=== PATIENT | female | born 1955 | race Asian ===

== ENCOUNTER 2016-07-09 21:19 | Inpatient (IN) | payer BC, MEDICAID ==
[~2016-07-09] VITALS: Ht 162.6 cm; Wt 73.5 kg
[2016-07-09 21:20] VITALS: BP 151/74; PULSE 58; RESP 16; TEMP 97.6; O2SAT 98
--- NOTE | 2016-07-09 21:30 | NUR ---
Placed in room 2 . Placed on cardiac monitor technician, blood pressure machine and pulse oximeter. To gown for exam. Side rails up. Report given to Klely HEATH.
--- NOTE | 2016-07-09 21:32 | NUR ---
Pt presents with c/o acute dizziness, started at home. Pt denies falling or injury. A&Ox4, denies SOB or chestpain,denies N/V/D, skin intact. Will continue to monitor
--- NOTE | 2016-07-09 21:35 | NUR ---
at bedside examining pt
[2016-07-09 22:11] LABS: BASOPHILS % (AUTO) 0.6 % (0.0-2.0); CALCIUM 9.5 mg/dL (8.4-11.0); CREATININE 0.78 mg/dL (0.55-1.30); EOSINOPHILS # (AUTO) 0.2 K/uL (0.0-0.4); HEMATOCRIT 43.8 % (36-48); HEMOGLOBIN 14.4 g/dL (12.0-16.0); LYMPHOCYTES # (AUTO) 3.2 K/uL (1.0-5.5); LYMPHOCYTES % (AUTO) 38.8 % (20.5-51.5); MEAN CORPUSCULAR HEMOGLOBIN 29 pg (27-31); MEAN CORPUSCULAR HGB CONC 33 % (32-36); MEAN CORPUSCULAR VOLUME 89 fL (79.0-98.0); MONOCYTES # (AUTO) 0.6 K/uL (0.0-1.0); MONOCYTES % (AUTO) 6.9 % (1.7-9.3); NEUTROPHILS # (AUTO) 4.2 K/uL (1.8-7.7); NEUTROPHILS % (AUTO) 51.7 % (40.0-70.0); PLATELET COUNT (AUTO) 195 K/uL (130-430); POTASSIUM 3.5 mmol/L (3.5-5.1); RED BLOOD CELL COUNT(AUTO) 4.92 MIL/uL (4.2-6.2); RED CELL DISTRIBUTION WIDTH 12.9 % (9.0-15.0); WHITE BLOOD COUNT (AUTO) 8.2 K/uL (4.8-10.8)
[2016-07-09 22:16] LABS: ALBUMIN 4.3 g/dL (3.4-4.8); TOTAL BILIRUBIN 0.5 mg/dL (0.0-1.0); TOTAL PROTEIN, SERUM 8.2 g/dL (6.4-8.3)
[2016-07-09 22:19] LABS: INR 0.9 (0.8-1.2)
[2016-07-09] MEDS ORDERED: NACL 0.9% 1,000 ML IV ONE (22:30)
--- NOTE | 2016-07-09 22:35 | NUR ---
Pt assessed, denies pain or distress. WIll continue to monitor
[2016-07-09 23:37] LABS: BILIRUBIN,URINE NEGATIVE (NEGATIVE); CLARITY/URINE SL HAZY (CLEAR); COLOR,URINE YELLOW (YELLOW); GLUCOSE,URINE NEGATIVE (NEGATIVE); KETONES,URINE NEGATIVE (NEGATIVE); LEUKOCYTE ESTERASE ,URINE 3+ (NEGATIVE); NITRITE, URINE NEGATIVE (NEGATIVE); PROTEIN URINE NEGATIVE (NEGATIVE); UROBILINOGEN,URINE 0.2 (0.2-1.0)
[2016-07-09 23:38] LABS: BLOOD, URINE TRACE (NEGATIVE)
--- NOTE | 2016-07-10 00:05 | NUR ---
Pt in bed, daughter at bedside
[2016-07-10 00:16] LABS: RBC,URINE 0-3 /HPF (0-3)
[2016-07-10 00:17] LABS: BACTERIA,URINE MODERATE /HPF (None Seen); WBC,URINE 20-50 /HPF (0-3)
[2016-07-10] MEDS ORDERED: LOSA25TA3 PO (00:21)
[2016-07-10] MEDS ORDERED: SIMV20TA2 PO (00:21)
[2016-07-10] MEDS ORDERED: cefTRIAXone 1 GM IVPB PREMIX 50 ML IV ONE (00:30)
--- NOTE | 2016-07-10 00:58 | NUR ---
Patient will be admitted to care of . Admitted to telemetry unit. Will go to room 114A. Belongings list completed. Summary report printed. Report given to Richie HEATHplate washer to 114A via ACLS protocol. 2 Licensed nurse present. IV present no signs or symptoms of infiltration.
--- NOTE | 2016-07-10 01:00 | NUR ---
ADMISSION ASSESSMENT: RECEIVED PT FROM ER VIA [facility], PT STEADY TO AMBULATE TO [facility] TO BED, ADMITTING DIAGNOSIS UTI AND BRADYCARDIA, , DENIES ANY DIZZINESS, INFANT TODDLER LEAD TEACHER PLACED, WILL CONTINUE TO MONITOR.
--- NOTE | 2016-07-10 01:05 | NUR ---
initial nursing notes: Patient is awake. Patient ambulates to the bathroom with assist. Patient has an IV access on the left AC. Patient denies of having pain.
[2016-07-10 01:13] VITALS: BP 152/83; PULSE 60; RESP 18; TEMP 97.9
[2016-07-10] MEDS: NACL 0.9% 1,000 ML IV SCH ×3 (01:28→21:00)
--- NOTE | 2016-07-10 03:05 | NUR ---
nursing rounds: Patient is asleep. Patient has no shortness of breath.
[2016-07-10 04:00] VITALS: BP 130/72; PULSE 56; RESP 17; TEMP 97.7; O2SAT 100
--- NOTE | 2016-07-10 05:05 | NUR ---
nursing rounds: Patient calmly resting in bed. Patient has no respiratory distress.
[2016-07-10] MEDS: INSULIN REGULAR, HUMAN 100 UNITS/ML, 10 ML VIAL (novoLIN R) SUBCUT PRN ×2 (06:24→17:43)
[2016-07-10 06:48] LABS: BASOPHILS % (AUTO) 0.5 % (0.0-2.0); EOSINOPHILS # (AUTO) 0.1 K/uL (0.0-0.4); EOSINOPHILS % (AUTO) 1.9 % (0.0-4.0); HEMATOCRIT 38.7 % (36-48); HEMOGLOBIN 13.5 g/dL (12.0-16.0); LYMPHOCYTES # (AUTO) 2.3 K/uL (1.0-5.5); LYMPHOCYTES % (AUTO) 33.7 % (20.5-51.5); MEAN CORPUSCULAR HEMOGLOBIN 31 pg (27-31); MEAN CORPUSCULAR HGB CONC 35 % (32-36); MEAN CORPUSCULAR VOLUME 89 fL (79.0-98.0); MONOCYTES # (AUTO) 0.5 K/uL (0.0-1.0); MONOCYTES % (AUTO) 7.3 % (1.7-9.3); NEUTROPHILS # (AUTO) 3.8 K/uL (1.8-7.7); NEUTROPHILS % (AUTO) 56.6 % (40.0-70.0); PLATELET COUNT (AUTO) 163 K/uL (130-430); RED BLOOD CELL COUNT(AUTO) 4.36 MIL/uL (4.2-6.2); RED CELL DISTRIBUTION WIDTH 12.8 % (9.0-15.0); WHITE BLOOD COUNT (AUTO) 6.7 K/uL (4.8-10.8)
--- NOTE | 2016-07-10 07:28 | NUR ---
closing nursing notes: Patient is awake, alert and oriented X 4. Patient is in no acute respiratory distress. 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 Provided nursing report to incoming morning shift nurse, KUMAR Gomes, at patient's bedside.
[2016-07-10 07:59] VITALS: BP 143/75; PULSE 57; RESP 20; TEMP 97.6; O2SAT 98
--- NOTE | 2016-07-10 07:59 | NUR ---
AM ROUNDS: No s/s of distress noted. Patient educated on safety precautions. Patient verbalized understanding. Will continue to monitor.
[2016-07-10] MEDS: LOSARTAN POTASSIUM 25 MG TABLET PO SCH (08:02)
[2016-07-10] MEDS ORDERED: ONDANSETRON HCL 4 MG/2 ML VIAL IVP PRN (09:15)
[2016-07-10] MEDS ORDERED: ZOLPIDEM TARTRATE 5 MG TABLET PO PRN (09:15)
[2016-07-10] MEDS ORDERED: ACETAMINOPHEN 325 MG TABLET PO PRN (09:15)
[2016-07-10] MEDS ORDERED: POTASSIUM CHLORIDE 10 MEQ TAB.PRT.SR PO PRN (09:15)
[2016-07-10] MEDS ORDERED: MORPHINE 2 MG/ML INJ. SYRINGE IVP PRN (09:15)
[2016-07-10] MEDS ORDERED: DOCUSATE SODIUM 100 MG CAPSULE PO PRN (09:15)
[2016-07-10] MEDS ORDERED: MAGNESIUM SULFATE 50 ML IV PRN (09:15)
[2016-07-10] MEDS ORDERED: LORazepam 2 MG/ML VIAL IVP PRN (09:15)
--- NOTE | 2016-07-10 09:48 | NUR ---
Cardiology consult Order received for a consult with Dr Gonzalez for symptomatic bradycardia. Spoke with Shasta at the exchange. Will follow up as needed.
--- NOTE | 2016-07-10 10:08 | NUR ---
PATIENT RESTING: Patient resting quietly. No acute distress noted. Vital signs within normal range.
--- NOTE | 2016-07-10 10:28 | NUR ---
Neurology consult Order received for a consult with Dr Matt. Spoke with Shasta at the exchange. Will follow up as needed.
[2016-07-10 12:20] VITALS: BP 154/73; PULSE 64; RESP 16; TEMP 96.9; O2SAT 94
[2016-07-10] MEDS: CARBAMIDE PEROXIDE 6.5% EAR DROPS (DEBROX) OT SCH ×3 (12:27→21:05)
--- NOTE | 2016-07-10 12:31 | NUR ---
PATIENT RESTING: Patient resting quietly. No acute distress noted. Vital signs within normal range.
--- NOTE | 2016-07-10 14:05 | NUR ---
PATIENT RESTING: Patient resting quietly. No acute distress noted. Vital signs within normal range.
--- NOTE | 2016-07-10 16:10 | NUR ---
PATIENT RESTING: Patient resting quietly. No acute distress noted. Vital signs within normal range.
[2016-07-10 16:11] VITALS: BP 144/75; PULSE 65; RESP 17; TEMP 98.9; O2SAT 99
--- NOTE | 2016-07-10 18:03 | NUR ---
CLOSING NOTE: All need met. Patient to be NPO after midnight for stress test at 1000 tomorrow. Will endorse to NOC shift nurse.
[2016-07-10 19:13] VITALS: BP 119/68; PULSE 58; RESP 15; TEMP 97.8; O2SAT 97
--- NOTE | 2016-07-10 19:40 | NUR ---
initial nursing notes: Patient is awake. Patient has IV fluid infusing on the left AC IV access. Patient denies of having pain.
[2016-07-10] MEDS: SIMVASTATIN 20 MG TABLET PO SCH (20:58)
[2016-07-10] MEDS: HEPARIN SODIUM,PORCINE 5000 UNITS/ML VIAL SUBCUT SCH (21:11)
--- NOTE | 2016-07-10 21:40 | NUR ---
nursing rounds: Patient calmly resting in bed. Patient watching television.
--- NOTE | 2016-07-10 23:40 | NUR ---
nursing rounds: Patient asleep in bed. Patient is aware that she will be NPO after midnight for a procedure tomorrow.
[2016-07-11 00:30] VITALS: BP 124/70; PULSE 56; RESP 18; TEMP 96.9; O2SAT 98
[2016-07-11] MEDS: cefTRIAXone 1 GM in D5W 50 ML IV SCH (00:50)
--- NOTE | 2016-07-11 01:40 | NUR ---
nursing rounds: Patient is sleeping. Patient has no shortness of breath.
--- NOTE | 2016-07-11 03:40 | NUR ---
nursing rounds: Patient calmly resting in bed. Call light within patient's reach.
[2016-07-11 04:00] VITALS: BP 109/67; PULSE 55; RESP 17; TEMP 97.2; O2SAT 100
--- NOTE | 2016-07-11 05:40 | NUR ---
nursing rounds: Patient asleep in bed. Kept bed alarm on for patient's safety.
[2016-07-11] MEDS: NACL 0.9% 1,000 ML IV SCH ×2 (05:54→16:45)
[2016-07-11 06:40] LABS: BASOPHILS % (AUTO) 0.5 % (0.0-2.0); EOSINOPHILS # (AUTO) 0.1 K/uL (0.0-0.4); EOSINOPHILS % (AUTO) 2.2 % (0.0-4.0); HEMATOCRIT 39.7 % (36-48); HEMOGLOBIN 13.5 g/dL (12.0-16.0); LYMPHOCYTES # (AUTO) 2.5 K/uL (1.0-5.5); LYMPHOCYTES % (AUTO) 42.2 % (20.5-51.5); MEAN CORPUSCULAR HEMOGLOBIN 30 pg (27-31); MEAN CORPUSCULAR HGB CONC 34 % (32-36); MEAN CORPUSCULAR VOLUME 89 fL (79.0-98.0); MONOCYTES # (AUTO) 0.4 K/uL (0.0-1.0); MONOCYTES % (AUTO) 6.8 % (1.7-9.3); NEUTROPHILS % (AUTO) 48.3 % (40.0-70.0); PLATELET COUNT (AUTO) 168 K/uL (130-430); RED BLOOD CELL COUNT(AUTO) 4.48 MIL/uL (4.2-6.2)
[2016-07-11 07:11] LABS: CALCIUM 8.6 mg/dL (8.4-11.0); CREATININE 0.76 mg/dL (0.55-1.30); POTASSIUM 3.8 mmol/L (3.5-5.1)
--- NOTE | 2016-07-11 07:29 | NUR ---
closing nursing notes: Patient is awake, alert and oriented X 4. Patient is in no acute respiratory distress. 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 Provided nursing report to incoming morning shift nurse, KUMAR Dewitt, at patient's bedside.
[2016-07-11 08:00] VITALS: BP 133/76; PULSE 53; RESP 18; TEMP 97.2; O2SAT 96
--- NOTE | 2016-07-11 08:00 | NUR ---
OPENING NOTE PATIENT IS AWAKE, ALERT AND ORIENTED. DENIES ANY PAIN AT THIS TIME. STATES SHE STILL HAS SOME BURNING WITH URINATION. PATIENT HAS VERBALIZED THAT SHE IS STRESSED ABOUT DEADLINES AT WORK AND DOES OT WANT TO BE HOSPITALIZED ANY LONGER. REPORTS LEFT EAR PAIN. UNKNOWN CAUSE, STATES SHE WOKE UP WITH PAIN.
[2016-07-11] MEDS: LOSARTAN POTASSIUM 25 MG TABLET PO SCH (08:56)
[2016-07-11] MEDS: CARBAMIDE PEROXIDE 6.5% EAR DROPS (DEBROX) OT SCH ×4 (08:57→21:06)
[2016-07-11] MEDS: HEPARIN SODIUM,PORCINE 5000 UNITS/ML VIAL SUBCUT SCH ×2 (09:00→21:09)
--- NOTE | 2016-07-11 09:52 | NUR ---
PATIENT TAKEN TO CARDIO STRESS TEST VIA WHEELCHAIR.
--- NOTE | 2016-07-11 11:07 | NUR ---
PATIENT RETURNED FROM CARDIAC STRESS TEST VIA WHEELCHAIR. REPORTS BEING VERY HUNGRY AND THIRSTY. DENIES ANY CHEST PAIN OR SOB. ATTACHED TO MONITOR, IV. DAUGHTER AT BEDSIDE WITH PATIENT.
[2016-07-11 12:00] VITALS: BP 123/73; PULSE 60; RESP 21; TEMP 97; O2SAT 97
--- NOTE | 2016-07-11 13:56 | NUR ---
PT FAMILY AT BEDSIDE. BG 36 PT LUNCH, GIVEN LUNCH TRAY AND SNACK. PER DR CATALAN PLANS TO DC PT HOME TOMORROW
--- NOTE | 2016-07-11 15:35 | NUR ---
DR CATALAN PAGED REGARDING POSITIVE BLOOD CULTURE RESULTS
--- NOTE | 2016-07-11 15:59 | NUR ---
Consult was called Rg:sepsis spoke with Selena from Dr Stratton exchange Dr Mas is tongue stitcher for Dr Stratton
[2016-07-11 16:00] VITALS: BP 119/62; PULSE 59; RESP 21; TEMP 97.1; O2SAT 97
--- NOTE | 2016-07-11 18:00 | NUR ---
PATIENT'S FRIEND AT BEDSIDE. PT AMBULATIN GORDON TEE WITH HER FRIEND AND IV POLE
--- NOTE | 2016-07-11 18:30 | NUR ---
PATIENT IV INFILTRATED. IV STOPPED, REMOVED AND PRESSURE DRESSING APPLIED. FAMILY REMAINS AT BEDSIDE
--- NOTE | 2016-07-11 19:15 | NUR ---
PATIENT IN STABLE CONDITION. NO SIGNS OF DISTRESS. REPORT GIVEN TO NIGHTSHIFT RN
--- NOTE | 2016-07-11 19:50 | NUR ---
ROUNDS PATIENT IN BED, WATCHING TV, VITALS STABLE, DENIES ANY PAIN AND DISCOMFORT AT THIS TIME. ASSESSMENT DONE AND DOCUMENTED. SEE FLOWSHEET. NEEDS ATTENDED TO. SAFETY AND FALL PRECAUTION MEASURES IN PLACED. BED IN LOW AND LOCKED POSITION. CALL LIGHT PLACED WITHIN REACH.
--- NOTE | 2016-07-11 21:00 | NUR ---
MEDICATION DUE MEDICATIONS GIVEN ORDERED, TOLERATED WELL. WILL CONTINUE TO MONITOR.
[2016-07-11] MEDS: SIMVASTATIN 20 MG TABLET PO SCH (21:06)
[2016-07-11] MEDS: INSULIN REGULAR, HUMAN 100 UNITS/ML, 10 ML VIAL (novoLIN R) SUBCUT PRN (21:08)
--- NOTE | 2016-07-12 | NUR ---
PATIENT RESTING: Patient resting quietly. No acute distress noted. Vital signs within normal range.
[2016-07-12 00:13] VITALS: BP 148/81; PULSE 57; RESP 16; TEMP 97.6; O2SAT 97
[2016-07-12] MEDS: cefTRIAXone 1 GM in D5W 50 ML IV SCH (00:56)
--- NOTE | 2016-07-12 02:10 | NUR ---
ROUNDS PATIENT ASLEEP, NO SOB NOTED, WILL CONTINUE TO MONITOR.
--- NOTE | 2016-07-12 04:21 | NUR ---
PATIENT RESTING: Patient resting quietly. No acute distress noted. Vital signs within normal range.
[2016-07-12 04:23] VITALS: BP 122/70; PULSE 57; RESP 18; TEMP 97.3; O2SAT 99
[2016-07-12] MEDS: NACL 0.9% 1,000 ML IV SCH ×3 (05:47→21:26)
--- NOTE | 2016-07-12 06:30 | NUR ---
CLOSING NOTES PATIENT AWAKE, VITALS STABLE, NO PAIN AND DISCOMFORT AT THIS TIME. ALL NEEDS ATTENDED TO. SAFETY MEASURES MAINTAINED. CALL LIGHT PLACED WITHIN REACH.
[2016-07-12 06:54] LABS: BASOPHILS % (AUTO) 0.7 % (0.0-2.0); CALCIUM 8.2 mg/dL (8.4-11.0); CREATININE 0.8 mg/dL (0.55-1.30); EOSINOPHILS # (AUTO) 0.2 K/uL (0.0-0.4); EOSINOPHILS % (AUTO) 2.5 % (0.0-4.0); HEMATOCRIT 37.6 % (36-48); LYMPHOCYTES # (AUTO) 2.5 K/uL (1.0-5.5); LYMPHOCYTES % (AUTO) 37.2 % (20.5-51.5); MEAN CORPUSCULAR HEMOGLOBIN 31 pg (27-31); MEAN CORPUSCULAR HGB CONC 35 % (32-36); MEAN CORPUSCULAR VOLUME 88 fL (79.0-98.0); MONOCYTES # (AUTO) 0.5 K/uL (0.0-1.0); NEUTROPHILS # (AUTO) 3.4 K/uL (1.8-7.7); NEUTROPHILS % (AUTO) 52.6 % (40.0-70.0); PLATELET COUNT (AUTO) 152 K/uL (130-430); POTASSIUM 3.7 mmol/L (3.5-5.1); RED BLOOD CELL COUNT(AUTO) 4.26 MIL/uL (4.2-6.2); RED CELL DISTRIBUTION WIDTH 12.6 % (9.0-15.0); WHITE BLOOD COUNT (AUTO) 6.6 K/uL (4.8-10.8)
[2016-07-12 07:33] VITALS: BP 134/73; PULSE 54; RESP 18; TEMP 98.6; O2SAT 99
--- NOTE | 2016-07-12 07:33 | NUR ---
INITIAL NOTE Received pt in bed, no s/s of distress or sob noted, pt has no c/o pain at this time, no c/o dizziness, pt in stable condition, pt aaox4, verbal. Bed at lowest position, call light within reach, will continue to monitor pt for any changes, fall precautions in place.
--- NOTE | 2016-07-12 08:50 | NUR ---
SOB Pt c/o feeling short of breath, saturation was 99% on room air, vss, 132/74, 56, 17, 98.6, no pain, elevated head of bed. Reassured pt her breathing was normal, asked pt to take deep breaths, pt stated. "I feel better now." Will continue to monitor pt for any changes.
[2016-07-12] MEDS: LOSARTAN POTASSIUM 25 MG TABLET PO SCH (08:57)
[2016-07-12] MEDS: CARBAMIDE PEROXIDE 6.5% EAR DROPS (DEBROX) OT SCH ×4 (08:58→21:18)
[2016-07-12] MEDS: HEPARIN SODIUM,PORCINE 5000 UNITS/ML VIAL SUBCUT SCH ×2 (08:58→21:16)
--- NOTE | 2016-07-12 09:10 | NUR ---
Neurology consult-follow up Follow up call was placed to Dr Matt [phone], spoke with Tanisha at the exchange. Will follow up as needed.
--- NOTE | 2016-07-12 09:23 | NUR ---
MD YAZMIN Caldwell making his rounds, aware of patients condition. Addendum: 07/12/16 at 0934 by Chanelle Butler RN Dr Caldwell aware of patients c/o SOB, per if ok from dr Rodgers she can d/c home, aware that dr hurst has not seen pt but can d/c even if she is not seen.
--- NOTE | 2016-07-12 10:20 | NUR ---
Rounds Pt in bed, no s/s of distress or sob noted, pt has no c/o pain at this time, pt in stable condition. Pt resting comfortably, will continue to monitor pt for any changes.
--- NOTE | 2016-07-12 11:20 | NUR ---
CONSULTATION; REASON FOR CONSULT: ANXIETY, DEPRESSION CONSULTING PHYSICIAN: VANE MARTIN MD ORDERED BY: AIDE CATALAN DO SPOKE WITH LOIS
[2016-07-12] MEDS: INSULIN REGULAR, HUMAN 100 UNITS/ML, 10 ML VIAL (novoLIN R) SUBCUT PRN ×3 (11:24→21:17)
[2016-07-12 11:35] VITALS: BP 137/70; PULSE 56; RESP 19; TEMP 96.5; O2SAT 97
[2016-07-12 15:36] VITALS: BP 147/75; PULSE 58; RESP 16; TEMP 96.7; O2SAT 94
--- NOTE | 2016-07-12 18:37 | NUR ---
Closing Note Pt in bed, no s/s of distress or sob noted, pt has no c/o pain at this time, no c/o dizziness, pt in stable condition, pt aaox4, verbal. Bed at lowest position, call light within reach, will endorse care of pt to incoming nurse, fall precautions in place.
--- NOTE | 2016-07-12 18:45 | NUR ---
MD CALL Dr Harrison called to see if he is coming to see rojas adamson, awaiting call back.
--- NOTE | 2016-07-12 18:58 | NUR ---
FOLLOW UP ON CONSULT REASON FOR CONSULTATION:EAR PAIN WAS CONSULT CALLED?Y PERSON WHO WAS NOTIFIED:KEYA CONSULTING PHYSICIAN:ERLIN LAUGHLIN FILER METAL PATTERNS SPECIALTY:NEUROLOGY FILER METAL PATTERNS PHONE NUMBER:[phone]
[2016-07-12 20:00] VITALS: BP 144/72; PULSE 61; RESP 18; TEMP 98.3; O2SAT 97
--- NOTE | 2016-07-12 20:00 | NUR ---
Rounds Received patient lying in bed resting, denies of any pain, no acute distress noted. IV site checked intact and patent, IV fluid infusing well. Instructed patient to call nurse when getting out of bed, call light within reach. Family at the bedside.
[2016-07-12] MEDS: SIMVASTATIN 20 MG TABLET PO SCH (21:15)
--- NOTE | 2016-07-12 22:16 | NUR ---
Rounds Patient resting quietly, no s/s of any pain, no acute distress noted. call light within reach.
--- NOTE | 2016-07-12 22:35 | NUR ---
FOLLOW UP ON CONSULT REASON FOR CONSULTATION:SEPSIS WAS CONSULT CALLED?Y PERSON WHO WAS NOTIFIED:KATHIA CONSULTING PHYSICIAN:TAWNYA GOMES (SUKHDEEP PAK SPIRITUAL ADVISOR) ANESTHESIOLOGIST SPECIALTY:INFECTIOUS DISEASE ANESTHESIOLOGIST PHONE NUMBER:[phone]
--- NOTE | 2016-07-13 | NUR ---
nursing rounds: Patient stated that the pain medication that he received was effective. Patient currently denies of having pain. Addendum: 07/13/16 at 0617 by Richie Hollis RN wrong patient
--- NOTE | 2016-07-13 00:10 | NUR ---
PATIENT RESTING: Patient resting quietly. No acute distress noted. Vital signs within normal range.
[2016-07-13 01:03] VITALS: BP 134/74; PULSE 99; RESP 20; TEMP 97.4; O2SAT 74
[2016-07-13] MEDS: cefTRIAXone 1 GM in D5W 50 ML IV SCH (01:06)
--- NOTE | 2016-07-13 02:34 | NUR ---
Rounds Patient resting quietly, no s/s of any pain, no acute distress noted. call light within reach.
[2016-07-13 04:30] VITALS: BP 141/69; PULSE 51; RESP 20; TEMP 97.9; O2SAT 100
--- NOTE | 2016-07-13 04:30 | NUR ---
Rounds Patient resting quietly, no s/s of any pain, no acute distress noted. call light within reach.
[2016-07-13] MEDS: INSULIN REGULAR, HUMAN 100 UNITS/ML, 10 ML VIAL (novoLIN R) SUBCUT PRN ×2 (06:11→11:37)
--- NOTE | 2016-07-13 06:25 | NUR ---
Closing notes Patient ambulate to the bathroom and back to bed with steady gait noted. patient c/o gas pain, Cracker x2 given to patient and hot water per patient request, Instructed patient to let me know if the cracker and hot water is not effective so I can call MD to get order for gas medication, patient verbalizes understanding. will monitor.
[2016-07-13 07:18] LABS: BASOPHILS % (AUTO) 0.4 % (0.0-2.0); EOSINOPHILS # (AUTO) 0.2 K/uL (0.0-0.4); EOSINOPHILS % (AUTO) 2.6 % (0.0-4.0); HEMATOCRIT 39.3 % (36-48); HEMOGLOBIN 13.3 g/dL (12.0-16.0); LYMPHOCYTES # (AUTO) 3.1 K/uL (1.0-5.5); LYMPHOCYTES % (AUTO) 42.6 % (20.5-51.5); MEAN CORPUSCULAR HEMOGLOBIN 30 pg (27-31); MEAN CORPUSCULAR HGB CONC 34 % (32-36); MEAN CORPUSCULAR VOLUME 89 fL (79.0-98.0); MONOCYTES # (AUTO) 0.5 K/uL (0.0-1.0); MONOCYTES % (AUTO) 6.2 % (1.7-9.3); NEUTROPHILS # (AUTO) 3.6 K/uL (1.8-7.7); NEUTROPHILS % (AUTO) 48.2 % (40.0-70.0); PLATELET COUNT (AUTO) 160 K/uL (130-430); RED BLOOD CELL COUNT(AUTO) 4.42 MIL/uL (4.2-6.2); RED CELL DISTRIBUTION WIDTH 12.9 % (9.0-15.0); WHITE BLOOD COUNT (AUTO) 7.4 K/uL (4.8-10.8)
[2016-07-13 07:26] VITALS: BP 143/75; PULSE 102; RESP 18; TEMP 96.4; O2SAT 98
[2016-07-13 07:38] LABS: CALCIUM 8.6 mg/dL (8.4-11.0); CREATININE 0.77 mg/dL (0.55-1.30); POTASSIUM 3.7 mmol/L (3.5-5.1)
--- NOTE | 2016-07-13 08:00 | NUR ---
Initial note A/O x 4, no SOB, no chest pain, denied pain. Skin warm to touch, IV #22 at L hand, patent, free of infection or infiltration. Currently on NS at rate 100 ml/hr. Rest in bed, lung sounds clear, soft ABD with active bowel sounds present all quadrants, no edema noted. Dx: UTI and dizziness, no hematuria or dysuria noted, denied dizziness. Education provided. Call light within reach, will continue to monitor patient.
[2016-07-13] MEDS: NACL 0.9% 1,000 ML IV SCH (08:45)
[2016-07-13] MEDS: LOSARTAN POTASSIUM 25 MG TABLET PO SCH (09:04)
[2016-07-13] MEDS: HEPARIN SODIUM,PORCINE 5000 UNITS/ML VIAL SUBCUT SCH (09:06)
[2016-07-13] MEDS: CARBAMIDE PEROXIDE 6.5% EAR DROPS (DEBROX) OT SCH ×2 (09:07→13:43)
--- NOTE | 2016-07-13 09:48 | NUR ---
Consult Follow Up: called to follow up on consult for anxiety/depression. Spoke with Ramonita. She said consult was given to Dr. Suero yesterday.
--- NOTE | 2016-07-13 09:56 | NUR ---
Consult follow up: Called Dr. Matt's office to follow up on consult. Spoke with [facility], who said they had not received consult. I gave them information. consult ordered by Dr. Caldwell.
--- NOTE | 2016-07-13 10:00 | NUR ---
Round and IV reinsertion A/O x 4, no SOB, no chest pain, denied pain. Skin warm to touch, Noted IV at L hand clot. Start IV #22 at L hand with good blood return, removed old IV, IV cath intact, patient tolerated well. Continued on NS at rate 100 ml/hr. Rest in bed, lung sounds clear, soft ABD with active bowel sounds present all quadrants, no edema noted. Dx: UTI and dizziness, no hematuria or dysuria noted, denied dizziness. Education provided. Call light within reach, will continue to monitor patient.
--- NOTE | 2016-07-13 10:30 | NUR ---
MD ROUNDS Dr Caldwell making his rounds, aware of patients condition, md made aware that neurologist and psychiatrist have not came to evaluate pt, per md ok for pt to d/c home with out being seen, charge nurse aware.
[2016-07-13 10:47] LABS: BILIRUBIN,URINE NEGATIVE (NEGATIVE); BLOOD, URINE NEGATIVE (NEGATIVE); CLARITY/URINE SL HAZY (CLEAR); COLOR,URINE YELLOW (YELLOW); GLUCOSE,URINE 3+ (NEGATIVE); KETONES,URINE NEGATIVE (NEGATIVE); LEUKOCYTE ESTERASE ,URINE 2+ (NEGATIVE); NITRITE, URINE NEGATIVE (NEGATIVE); PROTEIN URINE NEGATIVE (NEGATIVE); UROBILINOGEN,URINE 0.2 (0.2-1.0)
[2016-07-13] MEDS ORDERED: ESCI10TA PO (10:51)
[2016-07-13] MEDS ORDERED: LEVO500T20 PO (10:51)
[2016-07-13 11:10] LABS: RBC,URINE 0-3 /HPF (0-3)
[2016-07-13 11:11] LABS: BACTERIA,URINE FEW /HPF (None Seen); MUCUS,URINE 1+ /LPF (None Seen)
[2016-07-13 12:00] VITALS: BP 144/76; PULSE 55; RESP 21; TEMP 98.1; O2SAT 97
--- NOTE | 2016-07-13 12:00 | NUR ---
Round A/O x 4, no SOB, no chest pain, denied pain. Skin warm to touch, IV #22 at L hand, patent, free of infection or infiltration, continued on NS at rate 100 ml/hr. Rest in bed, lung sounds clear, soft ABD with active bowel sounds present all quadrants, no edema noted. Dx: UTI and dizziness, no hematuria or dysuria noted, denied dizziness. Patient is awared of DC, checked with [facility] pharmacy with Vira that they received the E-prescription. Education provided. Call light within reach, will continue to monitor patient.
[2016-07-13 12:56] VITALS: BP 130/68; PULSE 60; RESP 19; TEMP 98.6; O2SAT 99
--- NOTE | 2016-07-13 14:30 | NUR ---
D/C Patient Patient given medication reconciliation form and D/C instructions. Exit Care provided. Patient verbalized understanding. MD discussed with patient the results and treatment provided. Ambulatory with steady gait for discharge to home. Patient in stable condition, ID band removed. IV catheter removed, intact and dressing applied, no active bleeding. Rx of lexapro and levaquin. Patient educated on pain management. All belongings sent with patient.
== END 2016-07-13 14:30 | disposition home or self-care (01) | DRG 690 ==
LOC: SED 21:19 → STU 07-10 00:40
PROVIDERS: ADMIT General Practice; ATTEND General Practice
DX: N39.0 Urinary tract infection, site not specified (principal); I10 Essential (primary) hypertension; E78.5 Hyperlipidemia, unspecified; E66.9 Obesity, unspecified; Z80.0 Family history of malignant neoplasm of digestive organs; F41.1 Generalized anxiety disorder; F17.210 Nicotine dependence, cigarettes, uncomplicated; E11.65 Type 2 diabetes mellitus with hyperglycemia; M25.512 Pain in left shoulder; M54.9 Dorsalgia, unspecified; F32.9 Major depressive disorder, single episode, unspecified; F45.21 Hypochondriasis; B96.89 Other specified bacterial agents as the cause of diseases classified elsewhere; R07.89 Other chest pain; Z68.27 Body mass index [BMI] 27.0-27.9, adult; Z80.8 Family history of malignant neoplasm of other organs or systems
CPT/HCPCS: 36415; 70450-TC; 71010; 80048; 80053; 80061; 81000-TC; 82962; 83605; 83735-TC; 83880; 84443-TC; 84484; 85025; 85610-TC; 85730-TC; 87040-TC; 87086; 93005; 93017; 93306; 93880; 96360; 99285; J0696; J1644; J1815; J7030; J7060